=== PATIENT | female | born 1955 | race Caucasian/White ===

== ENCOUNTER 2016-08-30 15:19 | Observation (INO) | payer OTHER ==
[~2016-08-30] VITALS: Ht 175.3 cm; Wt 106.1 kg
--- NOTE | 2016-08-30 17:01 | DIAGNOSTIC IMAGING REPORT ---
PROCEDURE: XR CHEST 1 VIEW INDICATION: CHEST PAIN TECHNIQUE: Portable AP view 03:52 p.m. COMPARISON: None. FINDINGS: Lungs are clear. Heart and mediastinum are normal. Thorax is normal. IMPRESSION: 1. Negative chest.
--- NOTE | 2016-08-30 17:54 | ED ORDER SUMMARY ---
..... Patient: LUIS CARLOS ANDUJAR OrderSheet [facility] VisitID: [id number] [address] [place], [place] [id number] 61y, F Registration Date/Time: 08/30/2016 ORDER SHEET Weight: 106.5 kg (stated) Allergies: morphine GENERAL ORDERS: Chest 1V Urgent (15:08/30/2016 Leann ELIZABETH) (Ack 15:47 Rose Marie) (16:01 MWinterer R.N.) Aviation Medicine Specialist (Continuous) (15:08/30/2016 Leann ELIZABETH) (15:38 KWilliams R.N.) CBC w Diff Urgent (15:08/30/2016 Leann ELIZABETH) (15:38 KWilliams R.N.) CMP Urgent (15:08/30/2016 Leann ELIZABETH) (15:38 KWilliams R.N.) UA-Culture if indicated Urgent (15:08/30/2016 Leann ELIZABETH) (Ack 15:46 Rose Marie) (16:26 MWinterer R.N.) PT with INR Urgent (15:08/30/2016 Leann ELIZABETH) (15:38 KWilliams R.N.) PTT Urgent (15:08/30/2016 Leann ELIZABETH) (15:38 KWilliams R.N.) Amylase Urgent (15:08/30/2016 Leann ELIZABETH) (15:38 KWilliams R.N.) Lipase Urgent (15:08/30/2016 Leann ELIZABETH) (15:38 KWilliams R.N.) D-Dimer Urgent (15:08/30/2016 Leann ELIZABETH) (15:38 KWilliams R.N.) CPK Urgent (15:08/30/2016 Leann ELIZABETH) (15:38 KWilliams R.N.) Troponin-I Urgent (15:08/30/2016 Leann ELIZABETH) (15:38 KWilliams R.N.) BNP Urgent (15:08/30/2016 Leann ELIZABETH) (15:38 KWilliams R.N.) Oxygen (2 L/min) (NC) (15:08/30/2016 Leann ELIZABETH) (15:38 Dimple R.N.) Pulse oximeter (15:08/30/2016 Leann ELIZABETH) (15:38 Dimple R.N.) EKG - ER Stat (15:08/30/2016 Leann ELIZABETH) (15:38 Dimple R.N.) MEDICATION ORDERS: Aspirin PO 325 mg (NOW) (15:08/30/2016 Leann ELIZABETH) (15:39 Dimple R.N.) IV FLUIDS: IV Saline Lock (15:08/30/2016 Leann ELIZABETH) (15:39 Dimple R.N.) ORDER SHEET NOTES: [Electronically signed by Michael Blair MD (21:08/30/2016)] [Electronically signed by Kaitlynn Robertson R.N. (10:37 09/20/2016)] [Electronically locked/signed by Kaitlynn Robertson R.N. (10:37 09/20/2016)]
--- NOTE | 2016-08-30 17:54 | ED NURSING NOTES ---
Clinical Report - Nurses [facility] [address] [place] [address] 08/30/2016 15:20 Patient: LUIS CARLOS ANDUJAR TRIAGE Triage time 15:18. Acuity: LEVEL 2. Chief Complaint: CHEST PAIN. 15:08/30/16. Alert. No acute distress. --15:26 Ricardo Gamble R.N. 15:08/30/16. BP: 152/95. HR: 85. RR: 18. O2 saturation: 99%. Pain level now 10. --15:26 Ricardo Gamble R.N. Weight: 106.5 kg stated. Height/Length: 69 inches Per Patient. BMI: 34.7. --15:22 Ricardo Gamble R.N. Medications Prestique. --15:24 Ricardo Gamble R.N. Zoloft Oral. --15:24 Ricardo Gamble R.N. AmLODIPine Besylate Oral. --15:24 Ricardo Gamble R.N. Atorvastatin Calcium Oral. --15:24 Ricardo Gamble R.N. Allergies morphine. Mild (nausea) --15:25 Ricardo Gamble R.N. Medication/allergy information source: the patient. --15:26 Ricardo Gamble R.N. History Primary physician ([facility]). 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 States pain comes and goes.). This started just prior to arrival. Treatment MEDICAL LABORATORY SCIENTIST: (1 baby asa). SOCIAL HX: Former smoker, end date 1996. Occasional alcohol use. No drug use. FALL RISK ASSESSMENT: Fall risk assessment completed. No fall risk identified. NUTRITIONAL RISK ASSESSMENT: The nutritional risk assessment revealed no deficiencies. FUNCTIONAL ASSESSMENT: Functional assessment: no impairments noted. LEARNING NEEDS ASSESSMENT: The learning needs assessment revealed no barriers. SKIN INTEGRITY ASSESSMENT: Skin integrity risk assessment completed. No skin integrity risk identified. --15:26 Ricardo Gamble R.N. PROBLEMS: Depression. Hypercholesterolemia. Hypertension. --15:28 Ricardo Gamble R.N. ADDITIONAL SURGERIES: Breast Augmentation. Cataract Surgery. Cholecystectomy. Knee Surgery. --15:28 Ricardo Gamble R.N. Interventions ID band on patient. To treatment room. --15:26 Ricardo Gamble R.N. PHYSICAL ASSESSMENT 15:08/30/16. Ambulatory to room. GENERAL / NEURO / PSYCH: Alert. Oriented X 4. Appears in no acute distress. HEENT: Mucous membranes are pink. RESPIRATORY: Respirations not labored. CVS: Pulses within normal limits. Capillary refill less than 2 seconds. GI / : Abdomen soft and nontender. EXTREMITIES: No lower extremity edema. SKIN: Skin is warm and dry. Normal skin turgor. --15:26 Ricardo Gamble R.N. NURSING PROGRESS NOTES 15:08/30/16. The plan of care for this patient has been created. Patient gowned. Head of bed elevated. Call light placed in reach. Bed placed in lowest position. Brakes of bed on. Patient ready for evaluation- chart flagged. --15:26 Ricardo Gamble R.N. Oxygen increased to 2 liters by nasal cannula. --15:28 Ricardo Gamble R.N. 15:29 08/30/2016 Site #1 started via IV in the right antecubital space with an 20g angiocath, with aseptic technique and good blood return; one attempt. Blood drawn: rainbow set. Labeled in the presence of the patient and sent to the lab. Saline lock flushed with 10 mL saline. --15:39 Ricardo Gamble R.N. 15:30 08/30/2016 Aspirin PO Tablets 325 mg given. Allergies verified and confirmed 5 rights. --15:39 Ricardo Gamble R.N. EKG time: (1526). EKG was ordered, performed by a tech and shown to the ED physician. --15:45 Arleen Das ER Tech1 16:25 08/30/16. Checked patient name and birthdate: patient confirmed. Instructions provided to collect clean catch urine and patient verbalized understanding. Clean catch urine collected with return of yellow-colored clear urine; sample sent to lab for urinalysis. Specimen labeled in the presence of the patient. ( Pt ambulated to BR.). --16:25 Hyun Flores R.N. 16:30 08/30/16. BP: 157/76. HR: 71. RR: 16. O2 saturation: 98% on room air. --16:31 Hyun Flores R.N. 18:10 08/30/16. BP: 149/79. HR: 66. RR: 18. O2 saturation: 100% on nasal cannula at 2 liters/minute. Pain level now: 0/10. --18:12 Hyun Flores R.N. 18:12 08/30/16. The patient reports no complaints and she is calm and resting quietly. RESPIRATORY: No respiratory distress. CVS: Denies chest pain. Normal sinus rhythm noted. SKIN: Skin is warm and dry. Skin color within normal limits. --18:12 Hyun Flores R.N. 19:09 08/30/16. Care transferred and report given (MARCIE Carey). --19:09 Hyun Flores R.N. 19:17 08/30/16. BP: 124/66. HR: 85. RR: 20. O2 saturation: 100% on room air. Pain level now: 0/10. --19:18 Hyun Flores R.N. Locked/Released at 09/20/2016 10:37 by Kaitlynn Robertson R.N.
--- NOTE | 2016-08-30 17:54 | ED NURSING NOTES ---
Clinical Report - Nurses [facility] [address] [place] [address] 08/30/2016 15:20 Patient: LUIS CARLOS ANDUJAR TRIAGE Triage time 15:18. Acuity: LEVEL 2. Chief Complaint: CHEST PAIN. 15:08/30/16. Alert. No acute distress. --15:26 Ricardo Gamble R.N. 15:08/30/16. BP: 152/95. HR: 85. RR: 18. O2 saturation: 99%. Pain level now 10. --15:26 Ricardo Gamble R.N. Weight: 106.5 kg stated. Height/Length: 69 inches Per Patient. BMI: 34.7. --15:22 Ricardo Gamble R.N. Medications Prestique. --15:24 Ricardo Gamble R.N. Zoloft Oral. --15:24 Ricardo Gamble R.N. AmLODIPine Besylate Oral. --15:24 Ricardo Gamble R.N. Atorvastatin Calcium Oral. --15:24 Ricardo Gamble R.N. Allergies morphine. Mild (nausea) --15:25 Ricardo Gamble R.N. Medication/allergy information source: the patient. --15:26 Ricardo Gamble R.N. History Primary physician ([facility]). 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 States pain comes and goes.). This started just prior to arrival. Treatment TOOL SALVAGE WORKER: (1 baby asa). SOCIAL HX: Former smoker, end date 1996. Occasional alcohol use. No drug use. FALL RISK ASSESSMENT: Fall risk assessment completed. No fall risk identified. NUTRITIONAL RISK ASSESSMENT: The nutritional risk assessment revealed no deficiencies. FUNCTIONAL ASSESSMENT: Functional assessment: no impairments noted. LEARNING NEEDS ASSESSMENT: The learning needs assessment revealed no barriers. SKIN INTEGRITY ASSESSMENT: Skin integrity risk assessment completed. No skin integrity risk identified. --15:26 Ricardo Gamble R.N. PROBLEMS: Depression. Hypercholesterolemia. Hypertension. --15:28 Ricardo Gamble R.N. ADDITIONAL SURGERIES: Breast Augmentation. Cataract Surgery. Cholecystectomy. Knee Surgery. --15:28 Ricardo Gamble R.N. Interventions ID band on patient. To treatment room. --15:26 Ricardo Gamble R.N. PHYSICAL ASSESSMENT 15:08/30/16. Ambulatory to room. GENERAL / NEURO / PSYCH: Alert. Oriented X 4. Appears in no acute distress. HEENT: Mucous membranes are pink. RESPIRATORY: Respirations not labored. CVS: Pulses within normal limits. Capillary refill less than 2 seconds. GI / : Abdomen soft and nontender. EXTREMITIES: No lower extremity edema. SKIN: Skin is warm and dry. Normal skin turgor. --15:26 Ricardo Gamble R.N. NURSING PROGRESS NOTES 15:08/30/16. The plan of care for this patient has been created. Patient gowned. Head of bed elevated. Call light placed in reach. Bed placed in lowest position. Brakes of bed on. Patient ready for evaluation- chart flagged. --15:26 Ricardo Gamble R.N. Oxygen increased to 2 liters by nasal cannula. --15:28 Ricardo Gamble R.N. 15:29 08/30/2016 Site #1 started via IV in the right antecubital space with an 20g angiocath, with aseptic technique and good blood return; one attempt. Blood drawn: rainbow set. Labeled in the presence of the patient and sent to the lab. Saline lock flushed with 10 mL saline. --15:39 Ricardo Gamble R.N. 15:30 08/30/2016 Aspirin PO Tablets 325 mg given. Allergies verified and confirmed 5 rights. --15:39 Ricardo Gamble R.N. EKG time: (1526). EKG was ordered, performed by a tech and shown to the ED physician. --15:45 Arleen Das ER Tech1 16:25 08/30/16. Checked patient name and birthdate: patient confirmed. Instructions provided to collect clean catch urine and patient verbalized understanding. Clean catch urine collected with return of yellow-colored clear urine; sample sent to lab for urinalysis. Specimen labeled in the presence of the patient. ( Pt ambulated to BR.). --16:25 Hyun Flores R.N. 16:30 08/30/16. BP: 157/76. HR: 71. RR: 16. O2 saturation: 98% on room air. --16:31 Hyun Flores R.N. 18:10 08/30/16. BP: 149/79. HR: 66. RR: 18. O2 saturation: 100% on nasal cannula at 2 liters/minute. Pain level now: 0/10. --18:12 Hyun Flores R.N. 18:12 08/30/16. The patient reports no complaints and she is calm and resting quietly. RESPIRATORY: No respiratory distress. CVS: Denies chest pain. Normal sinus rhythm noted. SKIN: Skin is warm and dry. Skin color within normal limits. --18:12 Hyun Flores R.N. 19:09 08/30/16. Care transferred and report given (MARCIE Carey). --19:09 Hyun Flores R.N. 19:17 08/30/16. BP: 124/66. HR: 85. RR: 20. O2 saturation: 100% on room air. Pain level now: 0/10. --19:18 Hyun Flores R.N. Locked/Released at 09/20/2016 10:37 by Kaitlynn Robertson R.N.
--- NOTE | 2016-08-30 17:54 | ED CLINICAL REPORT ---
Clinical Report - Physicians/Mid Levels [facility] [address] [place] [address] 08/30/2016 15:20 Patient: LUIS CARLOS ANDUJAR Time Seen: 15:27. Arrived- By private vehicle. Historian- patient. HISTORY OF PRESENT ILLNESS Chief Complaint: CHEST PAIN. At its maximum, severity described as 8 / 10. When seen in the E.D., it was gone. Modifying factors- relieved by rest. It is described as aching and it is described as located in the central chest and left chest area and radiating to the right jaw. This started today and is now gone. It was abrupt in onset and has been constant. Onset during heavy exertion. The patient has had nausea. No vomiting, difficulty breathing or diaphoresis. Similar symptoms previously: None. REVIEW OF SYSTEMS No chills, fever, calf pain, cough or pedal edema. No abdominal pain, black stools, bloody stools, diarrhea or vomiting. She has experienced sweats and had constipation and frequency. She has had mild palpitations (chronically). It has been similar to previous symptoms. she had cardiac cath done 20 years ago at [facility] in [place]. All systems otherwise negative, except as recorded above. PAST HISTORY PCP - Leilow at the [facility]. Problems: Depression. Hypercholesterolemia. Hypertension. Additional Surgeries: Breast Augmentation. Cataract Surgery. Cholecystectomy. Knee Surgery. Medications: Atorvastatin Calcium Oral. AmLODIPine Besylate Oral. Zoloft Oral. Prestique. Allergies: morphine. Mild (nausea). SOCIAL HISTORY Former smoker, end date 1996. Occasional alcohol use. No drug use. Is a local resident. FAMILY HISTORY Heart disease in first-degree relative (father and sibling). mother due to kidney failure. ADDITIONAL NOTES The nursing notes have been reviewed. PHYSICAL EXAM Vital Signs: 08/30/2016 15:26 BP: 152/95. HR: 85. RR: 18. O2 saturation: 99%. Have been reviewed. Appearance: Alert. No acute distress. Eyes: Pupils equal, round and reactive to light. ENT: Pharynx normal. Neck: Normal inspection. Neck supple. CVS: Normal heart rate and rhythm. Heart sounds normal. Respiratory: No respiratory distress. Breath sounds normal. Abdomen: Soft and nontender. Bowel sounds normal. No organomegaly. No mass. Obese. Back: Normal external inspection. No CVA tenderness. Skin: Skin warm and dry. Normal skin color. Normal skin turgor. Extremities: Extremities exhibit normal ROM. No calf tenderness. No lower extremity edema. LABS, X-RAYS, AND EKG EKG: No acute process. Normal EKG. Rate: 83. Prior EKG unavailable. The study has been independently viewed by me. Chest X-ray: No acute disease. The X-rays were independently viewed by me. Laboratory Tests: UA-Culture if indicated: (FRANCA: 08/30/2016 16:00) ( MsgRcvd 08/30/2016 16:56) Final results Test Result Flag Units (Reference) URINE COLOR YELLOW URINE APPEARANCE CLEAR URINE GLUCOSE NEGATIVE (NEGATIVE) URINE BILIRUBIN NEGATIVE (NEGATIVE) URINE KETONE NEGATIVE (NEGATIVE) URINE SPECIFIC GRAVITY 1.010 (1.010-1.030) URINE PH 6.0 (5.0-8.0) URINE PROTEIN NEGATIVE (NEGATIVE) URINE UROBILINOGEN 0.2 EU/dL (0.2-1.0) URINE NITRITE NEGATIVE (NEGATIVE) URINE BLOOD TRACE-LYSED (NEGATIVE) URINE LEUK ESTERASE POSITIVE (NEGATIVE) URINE RBC 1-3 rbc/hpf (0-1) URINE WBC 3-5 wbc/hpf (0-1) URINE EPITHELIAL CELLS 3-5 EPI/hpf (0-5) URINE BACTERIA FEW (1+) (NONE SEEN) URINE COMMENT CULTURE INDICATED URINE CULTURES ARE SET-UP BASED ON THE FOLLOWING CRITERIA:POSITIVE NITRITEPOSITIVE LEUKOCYTE ESTERASEGREATER THAN 10 WHITE BLOOD CELLSMODERATE (2+) OR GREATER BACTERIA CBC w Diff: (FRANCA: 08/30/2016 15:34) ( MsgRcvd 08/30/2016 16:11) Final results Test Result Flag Units (Reference) WHITE BLOOD COUNT 8.8 K/uL (4.5-11.5) RED BLOOD COUNT 4.54 M/uL (4.00-5.20) HEMOGLOBIN 12.9 gm/dL (12.0-16.0) HEMATOCRIT 39.5 % (36.0-46.0) MEAN CELL VOLUME 87 fL (80-100) MEAN CORPUSCULAR HGB 29 pg (26-34) MEAN CORPUSCULAR HGB CONC 33 g/dL (31-37) RED CELL DISTRIBUTION WIDTH 13.4 % (11.6-14.8) PLATELET COUNT 232 K/uL (150-400) NEUTROPHIL % 53.1 % (50-75) LYMPH % 36.6 % (25-40) MONO % 8.0 % (3-14) EOSINOPHIL % 1.8 % (0-4) BASOPHIL % 0.5 % (0-2) PT with INR: (FRANCA: 08/30/2016 15:34) ( MsgRcvd 08/30/2016 16:21) Final results Test Result Flag Units (Reference) INR 1.0 (0.8-1.2) Low Intensity Therapy: INR 1.5-2.0 PT range 18.5-23.1Mod.Intensity Therapy: INR 2.0-3.0 PT range 23.1-31.5High Intensity Therapy: INR 2.5-3.5 PT range 27.4-35.5High Intensity Therapy 2: INR 3.0-4.0 PT range 31.5-39.3 APTT 35 H SECONDS (24-34) D-DIMER QUANTITATIVE < 0.27 L ug/mLFEU (0.27-0.52) The primary value of this quantitative assay relates toits negative predictive value (i.e. exclusion) of pulmonaryembolism/deep vein thrombosis/DIC.Elevated levels of d-dimer may also occur with:, age, cancer, inflammation, liver disease,post-op, infection, hematoma, coronary disease, peripheralarteriopathy, bleeding disorders and thrombolytic treatment.Results should be correlated with other clinical andradiological data.Testing Methodology: Latex Immunoassay BNP: (FRANCA: 08/30/2016 15:34) ( MsgRcvd 08/30/2016 16:37) Final results Test Result Flag Units (Reference) B-TYPE NATRIURETIC PEPTIDE 30.0 pg/ml (5-100) CMP: (FRANCA: 08/30/2016 15:34) ( MsgRcvd 08/30/2016 16:22) Final results Test Result Flag Units (Reference) GLUCOSE 92 mg/dL (70-110) BUN 12 mg/dL (7-18) CREATININE 0.7 mg/dL (0.6-1.3) Estimated GFR >60 mL/min Estimated GFR- >60 mL/min Note: Persistent reduction over 3 months in eGFR<60 mL/min/1.73 m2 defines CKD. Patients with eGFR values>=60 mL/min/1.73 m2 may also have CKD if evidence ofpersistent proteinuria. Additional information may be foundat www.kidney.org. SODIUM 138 mmol/L (136-145) POTASSIUM 4.0 mmol/L (3.5-5.1) CHLORIDE 102 mmol/L (98-107) CARBON DIOXIDE 27 mmol/L (21-32) CALCIUM 8.8 mg/dL (8.5-10.1) TOTAL PROTEIN 7.5 g/dL (6.4-8.2) ALBUMIN 3.8 g/dL (3.3-5.0) BILIRUBIN, TOTAL 0.7 mg/dL (0.0-1.0) ALKALINE PHOSPHATASE 76 U/L (46-116) AST (SGOT) 34 U/L (15-37) ALT (SGPT) 54 U/L (12-78) LIPASE 203 U/L (73-393) AMYLASE 82 U/L (25-115) CPK 77 U/L (24-260) TROPONIN I <0.05 ng/mL (0.00-1.5) TROPONIN REFERENCE RANGE:<0.1 NEGATIVE0.1-1.5 INDETERMINANT>1.5 POSITIVE . PROGRESS AND PROCEDURES Course of Care: Patient is stable. Discussed case with hospitalist, (Alessandra). Reviewed test results and need for additional work-up. Agreed upon treatment plan, need for patient follow-up and decision to place in observation. Health care provider will see patient in hospital. Patient/family counseled. Old medical records ordered. Old records unavailable. Disposition: Discharged. Condition: stable. CLINICAL IMPRESSION Chest pain. (Electronically signed by Michael Blair MD 08/30/2016 21:24)
--- NOTE | 2016-08-30 17:54 | ED ORDER SUMMARY ---
..... Patient: LUIS CARLOS ANDUJAR OrderSheet [facility] VisitID: [id number] [address] [place], [place] [id number] 61y, F Registration Date/Time: 08/30/2016 ORDER SHEET Weight: 106.5 kg (stated) Allergies: morphine GENERAL ORDERS: Chest 1V Urgent (15:08/30/2016 Leann ELIZABETH) (Ack 15:47 Rose Marie) (16:01 MWinterer R.N.) Craft Center Director (Continuous) (15:08/30/2016 Leann ELIZABETH) (15:38 KWilliams R.N.) CBC w Diff Urgent (15:08/30/2016 Leann ELIZABETH) (15:38 KWilliams R.N.) CMP Urgent (15:08/30/2016 Leann ELIZABETH) (15:38 KWilliams R.N.) UA-Culture if indicated Urgent (15:08/30/2016 Leann ELIZABETH) (Ack 15:46 Rose Marie) (16:26 MWinterer R.N.) PT with INR Urgent (15:08/30/2016 Leann ELIZABETH) (15:38 KWilliams R.N.) PTT Urgent (15:08/30/2016 Leann ELIZABETH) (15:38 KWilliams R.N.) Amylase Urgent (15:08/30/2016 Leann ELIZABETH) (15:38 KWilliams R.N.) Lipase Urgent (15:08/30/2016 Leann ELIZABETH) (15:38 KWilliams R.N.) D-Dimer Urgent (15:08/30/2016 Leann ELIZABETH) (15:38 KWilliams R.N.) CPK Urgent (15:08/30/2016 Leann ELIZABETH) (15:38 KWilliams R.N.) Troponin-I Urgent (15:08/30/2016 Leann ELIZABETH) (15:38 KWilliams R.N.) BNP Urgent (15:08/30/2016 Leann ELIZABETH) (15:38 KWilliams R.N.) Oxygen (2 L/min) (NC) (15:08/30/2016 Leann ELIZABETH) (15:38 Dimple R.N.) Pulse oximeter (15:08/30/2016 Leann ELIZABETH) (15:38 Dimple R.N.) EKG - ER Stat (15:08/30/2016 Leann ELIZABETH) (15:38 Dimple R.N.) MEDICATION ORDERS: Aspirin PO 325 mg (NOW) (15:08/30/2016 Leann ELIZABETH) (15:39 Dimple R.N.) IV FLUIDS: IV Saline Lock (15:08/30/2016 Leann ELIZABETH) (15:39 Dimple R.N.) ORDER SHEET NOTES: [Electronically signed by Michael Blair MD (21:08/30/2016)] [Electronically signed by Kaitlynn Robertson R.N. (10:37 09/20/2016)] [Electronically locked/signed by Kaitlynn Robertson R.N. (10:37 09/20/2016)]
[2016-08-30 20:51] VITALS: BP 121/76
[2016-08-30 22:32] VITALS: BP 127/71
[2016-08-30] MEDS ORDERED: AMLODIPINE BES2.5 MG PO (23:41)
[2016-08-30] MEDS ORDERED: ATORVASTATIN CA40 MG PO (23:42)
[2016-08-30] MEDS ORDERED: ZOLOFT25 MG PO (23:43)
[2016-08-30] MEDS ORDERED: PRISTIQ25 MG (23:44)
[2016-08-31 00:59] VITALS: BP 137/90
--- NOTE | 2016-08-31 01:48 | History & Physical Report ---
Medications and Allergies Medications Current Medications Sig/Marga Start time Last Medication Dose Route Stop Time Status Admin Atorvastatin Calcium 20 MG QPM 08/31 1800 AC PO Amlodipine Besylate 5 MG DAILY 08/31 0900 AC PO Aspirin 81 MG DAILY 08/31 09 AC PO Sertraline HCl 25 MG DAILY 08/31 0900 AC PO Pantoprazole Sodium 40 MG DAILY@0600 08/31 0600 AC IV Heparin Sodium See Dose .ADJUSTMENT DOSE PRN 08/31 0030 AC (Porcine) Insts (1) IV Heparin Sodium/ 500 ML TITRATE 08/31 0030 AC 08/31 Sodium Chloride IV 0043 Sodium Chloride 1,000 ML ASDIRECTED 08/30 2345 AC IV Docusate Sodium 250 MG BID PRN 08/30 2300 AC PO Nitroglycerin 0.4 MG Q5M PRN 08/30 2215 AC SL Acetaminophen 650 MG Q6H PRN 08/30 2200 AC PO Morphine Sulfate 1 MG Q30MIN PRN 08/30 2200 AC 08/31 IV 0057 Ondansetron HCl 4 MG Q6H PRN 08/30 2200 AC 08/31 IV 0057 Zolpidem Tartrate 5 MG QHS PRN 08/30 2200 AC PO Sodium Chloride 1,000 ML ASDIRECTED 08/30 1930 AC IV Dose Instructions: (1)Heparin Sodium (Porcine): DOSE PER ADMIN CRITERIA (2000 - 4000 UNITS) Allergies Coded Allergies: Morphine (Mild, MILD NAUSEA 08/30/16) Physical Exam Vital Signs / I&Os Vital Signs Date Time Temp Pulse Resp B/P Pulse O2 O2 Flow FiO2 Ox Delivery Rate 08/31 0118 Nasal 3.0 Cannula 08/31 58 97.5 70 18 137/90 100 Nasal 3.0 Cannula 08/30 2231 98.1 62 18 127/71 98 Room Air 08/30 2050 97.7 65 16 121/76 99 I&O 08/30 0800 08/30 1600 08/31 0000 Intake Total Output Total Balance LAB Results Laboratory Tests 08/30 08/30 08/30 1534 1534 1600 Chemistry Plasma Sodium (136 - 145 mmol/L) 138 Plasma Potassium (3.5 - 5.1 mmol/L) 4.0 Plasma Chloride (98 - 107 mmol/L) 102 CO2 (Enzymatic) (21 - 32 mmol/L) 27 BUN (7 - 18 mg/dL) 12 Creatinine (0.6 - 1.3 mg/dL) 0.7 Est GFR ( Amer) (mL/min) >60 Est GFR (Non-Af Amer) (mL/min) >60 Glucose (70 - 110 mg/dL) 92 Plasma Calcium (8.5 - 10.1 mg/dL) 8.8 Total Bilirubin (0.0 - 1.0 mg/dL) 0.7 AST (15 - 37 U/L) 34 ALT (12 - 78 U/L) 54 Alkaline Phosphatase (46 - 116 U/L) 76 Creatine Kinase (24 - 260 U/L) 77 Troponin (0.00 - 1.5 ng/mL) <0.05 B-Natriuretic Peptide (5 - 100 pg/ml) 30.0 Total Protein (6.4 - 8.2 g/dL) 7.5 Albumin (3.3 - 5.0 g/dL) 3.8 Amylase (25 - 115 U/L) 82 Lipase (73 - 393 U/L) 203 Coagulation INR (0.8 - 1.2) 1.0 APTT (24 - 34 SECONDS) 35 D-Dimer, Quantitative (0.27 - 0.52 ug/mLFEU) < 0.27 Hematology WBC (4.5 - 11.5 K/uL) 8.8 RBC (4.00 - 5.20 M/uL) 4.54 Hgb (12.0 - 16.0 gm/dL) 12.9 Hct (36.0 - 46.0 %) 39.5 MCV (80 - 100 fL) 87 MCH (26 - 34 pg) 29 RDW (11.6 - 14.8 %) 13.4 Neut % (Auto) (50 - 75 %) 53.1 Lymph % (Auto) (25 - 40 %) 36.6 Clark % (Auto) (3 - 14 %) 8.0 Eos % (Auto) (0 - 4 %) 1.8 Baso % (Auto) (0 - 2 %) 0.5 Plt Count, EDTA (150 - 400 K/uL) 232 PUBS MCHC (31 - 37 g/dL) 33 Urines Urine Color YELLOW Urine Appearance CLEAR Urine pH (5.0 - 8.0) 6.0 Ur Specific [place] (1.010 - 1.030) 1.010 Urine Protein (NEGATIVE) NEGATIVE Urine Ketones (NEGATIVE) NEGATIVE Urine Blood (NEGATIVE) TRACE-LYSED Urine Nitrite (NEGATIVE) NEGATIVE Urine Bilirubin (NEGATIVE) NEGATIVE Urine Urobilinogen (0.2 - 1.0 EU/dL) 0.2 Ur Leukocyte Esterase (NEGATIVE) POSITIVE Urine RBC (0 - 1 rbc/hpf) 1-3 Urine WBC (0 - 1 wbc/hpf) 3-5 Ur Epithelial Cells (0 - 5 EPI/hpf) 3-5 Urine Bacteria (NONE SEEN) FEW (1+) Urine Glucose (NEGATIVE) NEGATIVE Urine Comment CULTURE INDICATED 08/30 2210 Chemistry Creatine Kinase (24 - 260 U/L) 168 Troponin (0.00 - 1.5 ng/mL) 3.99 Microbiology Date/Time Procedure - Status Source Growth 08/30 1600 Urine Culture - RECD URINE CC
--- NOTE | 2016-08-31 03:48 | HISTORY AND PHYSICAL ---
ADMITTED: 08/30/2016 CHIEF COMPLAINT: Chest pain Information source: The patient herself. Reliability good. HISTORY OF PRESENT ILLNESS: 61-year-old female with past medical history of hypertension, high cholesterol, h/o smoking inthe past who presented to [facility] Emergency Department with a complaint of left-sided chest pain. On initial evaluation in the emergency department, her troponin levels were negative. She was admitted to the hospital for further evaluation and management. As per patient, she was fine until today afternoon, when she started feeling left- sided chest pain when she was unloading hay. The pain was located on the left side. It was pressure-like, which was radiating to her jaw on the right side. She had took baby aspirin with no immediate relief, her chest pain subsided though after 30-40 minute. She told this to her son and her son brought her to [facility] Emergency Department. While entering into the emergency department, she again felt the same chest pain, which was relieved with resting in bed. On floor, her EKGs were reviewed and which showed ST elevation in anteroseptal leads including V1 and V2. Troponins were repeated which were positive with value of 3.99. Dr. Moya, medical library assistant from [facility], was contacted, who recommended to start ACS treatment protocol She was given clopidogrel 300mg orally. She had received aspirin 325 mg in ER. Statin and heparin 5000 units bolus is given and heparin drip started. Around 1 a.m., she again complained of chest pain which was similar to her previous pain. She was given morphine and is being transferred to [facility] for furthur management. MEDICAL/SURGICAL HISTORY: Recently diagnosed hypertension, hyperlipidemia. Surgery for retinal detachment. MEDICATIONS: Home meds as below, doses needs to be confirmed 1. Amlodipine 2. Atorvastatin 3. Sertraline 4. Famotidine ALLERGIES: 1. MORPHINE, MILD NAUSEA. SOCIAL HISTORY: The patient lives in the community with her family. 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 H/o chronic smoking, quit 20 years back. She used to smoke 1/2 to 1 pack of cigarettes and smoked for 25 years. She drinks alcohol occasionally. She denies any history of drug abuse. FAMILY HISTORY: Grandmother of heart blockage at the age of 50 years. Mother had kidney failure from diabetes and hypertension. She also had hyperlipidemia. Father had of heart failure. REVIEW OF SYSTEMS: She denies any fever, chills, sweats, weakness, malaise. She denies any pain, vision change, conjunctival inflammation, eyelid inflammation and redness. She denies any nasal congestion, throat pain, throat swelling. She denied any cough, shortness of breath, wheezing. She does complain of chest pain, which is left- sided. She denies any palpitation, orthopnea, PND, edema, or lightheadedness. She denies nausea, vomiting, abdominal pain, diarrhea, constipation. She denies any dysuria, frequency, incontinence, hematuria. She denies any neck pain, shoulder pain, arm pain, back pain, hand pain, leg pain, foot pain. She denies any rashes, lesions, jaundice, bruising. She denies any weakness, numbness, and coordination change in her speech, confusion, seizures. PHYSICAL EXAMINATION: VITAL SIGNS: Temperature 97.7, pulse rate 65 per minute, respiratory rate 16 per minute, blood pressure 121/71, oxygen saturation 99. GENERAL APPEARANCE: She is alert, awake, oriented x3, in no acute distress. HEENT: Normal. LUNGS: Clear to auscultation, normal air movement. NECK: No JVD. Supple. CARDIOVASCULAR: Normal. There is no chest wall tenderness. Regular rate and rhythm, normal S1 and S2. No murmurs, gallops, rubs. ABDOMEN: Soft, normal bowel sounds. No tenderness, no guarding. EXTREMITIES: No edema. SKIN: No rashes. No breakdown. No significant lesions. NEUROLOGIC: No lateralizing signs. LAB/IMAGING: Sodium 138, potassium 4, chloride 102, bicarbonate 27, BUN 12, creatinine 0.7. GFR more than 60, glucose 92, calcium 8.8. Liver functions within normal limits. Creatinine kinase 77. Troponin first set less than 0.05. Troponin, second set 3.99. BNP 30. Amylase 82, lipase 203. Liver functions normal. INR 1. PTT 35. D-dimer less than 0.27. WBC 8.8, hemoglobin 12.9, hematocrit 39.5, platelets 232. Urinalysis: Color yellow, appearance clear, pH 6, specific gravity 1.010, urine protein negative, ketones negative, urine blood trace lysed. Urine nitrites negative. Urine leukocyte esterase positive. Urine RBC 1-3, urine WBC 3-5, urine nucleated cells 3-5, urine bacteria few. Urine culture pending. Chest x-ray negative. IMPRESSION/PLAN: 1. Chest pain, possible ST elevation myocardial infarction. Received aspirin 325 mg bolus, clopidogrel 300 mg, started on heparin drip. Morphine p.r.n. for chest pain. Nitroglycerin sublingual for chest pain. Metoprolol if blood pressure permits, statin, monitor troponins q.8 hourly. EKG. The patient is being transferred to [facility] for further evaluation and management and possible angiography. 2. Hypertension, metoprolol for now, adjust as needed. 3. Hyperlipidemia: jeffery, check lipid profile and HbA1c E/M coding admission, inpatient high, 41494.
--- NOTE | 2016-08-31 03:48 | HISTORY AND PHYSICAL ---
ADMITTED: 08/30/2016 CHIEF COMPLAINT: Chest pain Information source: The patient herself. Reliability good. HISTORY OF PRESENT ILLNESS: 61-year-old female with past medical history of hypertension, high cholesterol, h/o smoking inthe past who presented to [facility] Emergency Department with a complaint of left-sided chest pain. On initial evaluation in the emergency department, her troponin levels were negative. She was admitted to the hospital for further evaluation and management. As per patient, she was fine until today afternoon, when she started feeling left- sided chest pain when she was unloading hay. The pain was located on the left side. It was pressure-like, which was radiating to her jaw on the right side. She had took baby aspirin with no immediate relief, her chest pain subsided though after 30-40 minute. She told this to her son and her son brought her to [facility] Emergency Department. While entering into the emergency department, she again felt the same chest pain, which was relieved with resting in bed. On floor, her EKGs were reviewed and which showed ST elevation in anteroseptal leads including V1 and V2. Troponins were repeated which were positive with value of 3.99. Dr. Moya, converter skimmer from [facility], was contacted, who recommended to start ACS treatment protocol She was given clopidogrel 300mg orally. She had received aspirin 325 mg in ER. Statin and heparin 5000 units bolus is given and heparin drip started. Around 1 a.m., she again complained of chest pain which was similar to her previous pain. She was given morphine and is being transferred to [facility] for furthur management. MEDICAL/SURGICAL HISTORY: Recently diagnosed hypertension, hyperlipidemia. Surgery for retinal detachment. MEDICATIONS: Home meds as below, doses needs to be confirmed 1. Amlodipine 2. Atorvastatin 3. Sertraline 4. Famotidine ALLERGIES: 1. MORPHINE, MILD NAUSEA. SOCIAL HISTORY: The patient lives in the community with her family. 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 H/o chronic smoking, quit 20 years back. She used to smoke 1/2 to 1 pack of cigarettes and smoked for 25 years. She drinks alcohol occasionally. She denies any history of drug abuse. FAMILY HISTORY: Grandmother of heart blockage at the age of 50 years. Mother had kidney failure from diabetes and hypertension. She also had hyperlipidemia. Father had of heart failure. REVIEW OF SYSTEMS: She denies any fever, chills, sweats, weakness, malaise. She denies any pain, vision change, conjunctival inflammation, eyelid inflammation and redness. She denies any nasal congestion, throat pain, throat swelling. She denied any cough, shortness of breath, wheezing. She does complain of chest pain, which is left- sided. She denies any palpitation, orthopnea, PND, edema, or lightheadedness. She denies nausea, vomiting, abdominal pain, diarrhea, constipation. She denies any dysuria, frequency, incontinence, hematuria. She denies any neck pain, shoulder pain, arm pain, back pain, hand pain, leg pain, foot pain. She denies any rashes, lesions, jaundice, bruising. She denies any weakness, numbness, and coordination change in her speech, confusion, seizures. PHYSICAL EXAMINATION: VITAL SIGNS: Temperature 97.7, pulse rate 65 per minute, respiratory rate 16 per minute, blood pressure 121/71, oxygen saturation 99. GENERAL APPEARANCE: She is alert, awake, oriented x3, in no acute distress. HEENT: Normal. LUNGS: Clear to auscultation, normal air movement. NECK: No JVD. Supple. CARDIOVASCULAR: Normal. There is no chest wall tenderness. Regular rate and rhythm, normal S1 and S2. No murmurs, gallops, rubs. ABDOMEN: Soft, normal bowel sounds. No tenderness, no guarding. EXTREMITIES: No edema. SKIN: No rashes. No breakdown. No significant lesions. NEUROLOGIC: No lateralizing signs. LAB/IMAGING: Sodium 138, potassium 4, chloride 102, bicarbonate 27, BUN 12, creatinine 0.7. GFR more than 60, glucose 92, calcium 8.8. Liver functions within normal limits. Creatinine kinase 77. Troponin first set less than 0.05. Troponin, second set 3.99. BNP 30. Amylase 82, lipase 203. Liver functions normal. INR 1. PTT 35. D-dimer less than 0.27. WBC 8.8, hemoglobin 12.9, hematocrit 39.5, platelets 232. Urinalysis: Color yellow, appearance clear, pH 6, specific gravity 1.010, urine protein negative, ketones negative, urine blood trace lysed. Urine nitrites negative. Urine leukocyte esterase positive. Urine RBC 1-3, urine WBC 3-5, urine nucleated cells 3-5, urine bacteria few. Urine culture pending. Chest x-ray negative. IMPRESSION/PLAN: 1. Chest pain, possible ST elevation myocardial infarction. Received aspirin 325 mg bolus, clopidogrel 300 mg, started on heparin drip. Morphine p.r.n. for chest pain. Nitroglycerin sublingual for chest pain. Metoprolol if blood pressure permits, statin, monitor troponins q.8 hourly. EKG. The patient is being transferred to [facility] for further evaluation and management and possible angiography. 2. Hypertension, metoprolol for now, adjust as needed. 3. Hyperlipidemia: jeffery, check lipid profile and HbA1c E/M coding admission, inpatient high, [id number].
--- NOTE | 2016-09-20 10:37 | ED DISCHARGE INSTRUCTIONS ---
Patient: LUIS CARLOS ANDUJAR General Instructions [facility] VisitID: [id number] [address] [place] [address] 61y, F Registration Date/Time: 08/30/2016 Chest pain. (Electronically signed by Michael Blair MD 08/30/2016 21:24)
--- NOTE | 2016-09-20 10:37 | ED MAR SUMMARY ---
..... Medication Administration Record [facility] [address] [place] [address] Patient: LUIS CARLOS ANDUJAR Visit ID: [id number] 61y, F Weight: 106.5 kg Height/Length: 69 in BMI: 34.7 ALLERGIES: morphine Given 15:30 08/30/2016 Ricardo Gamble R.N. Medication Administered: ASPIRIN [PO], Dose: 325 mg Tablets PO. Medication Ordered: Aspirin PO 325 mg (NOW).
--- NOTE | 2016-09-20 10:37 | ED DISCHARGE INSTRUCTIONS ---
Patient: LUIS CARLOS ANDUJAR General Instructions [facility] VisitID: [id number] [address] [place] [address] 61y, F Registration Date/Time: 08/30/2016 Chest pain. (Electronically signed by Michael Blair MD 08/30/2016 21:24)
--- NOTE | 2016-09-20 10:37 | ED MAR SUMMARY ---
..... Medication Administration Record [facility] [address] [place] [address] Patient: LUIS CARLOS ANDUJAR Visit ID: [id number] 61y, F Weight: 106.5 kg Height/Length: 69 in BMI: 34.7 ALLERGIES: morphine Given 15:30 08/30/2016 Ricardo Gamble R.N. Medication Administered: ASPIRIN [PO], Dose: 325 mg Tablets PO. Medication Ordered: Aspirin PO 325 mg (NOW).
--- NOTE | 2016-09-20 10:37 | ED MED RECONCILIATION SUMMARY ---
Patient: LUIS CARLOS ANDUJAR Medication Reconciliation Report [facility] VisitID: [id number] [address] [place] [address] 61y, F Registration Date/Time: 08/30/2016 Weight: 106.5 kg Height/Length: 69 in. BMI: 34.7 ALLERGIES: morphine The patient's Home Medications are listed below: THE FOLLOWING MEDICATIONS NEED TO BE RECONCILED: AmLODIPine Besylate Oral Atorvastatin Calcium Oral Prestique Zoloft Oral The source(s) of the original Home Medication information: patient The following Medications were given to the patient in the Emergency Department: Aspirin [PO] PO 325 mg, administered: 08/30/2016 3:30:00 PM The following Medications were prescribed to the patient: None.
--- NOTE | 2016-09-20 10:37 | ED MED RECONCILIATION SUMMARY ---
Patient: LUIS CARLOS ANDUJAR Medication Reconciliation Report [facility] VisitID: [id number] [address] [place] [place] [address] 61y, F Registration Date/Time: 08/30/2016 Weight: 106.5 kg Height/Length: 69 in. BMI: 34.7 ALLERGIES: morphine The patient's Home Medications are listed below: THE FOLLOWING MEDICATIONS NEED TO BE RECONCILED: AmLODIPine Besylate Oral Atorvastatin Calcium Oral Prestique Zoloft Oral The source(s) of the original Home Medication information: patient The following Medications were given to the patient in the Emergency Department: Aspirin [PO] PO 325 mg, administered: 08/30/2016 3:30:00 PM The following Medications were prescribed to the patient: None.
== END 2016-08-31 01:43 | disposition short-term general hospital (02) ==
LOC: ED SRH 15:19 → TRANS SRH 18:46 → ACUTE2 SRH 20:44
PROVIDERS: ADMIT Emergency Medicine
DX: R07.9 Chest pain, unspecified (principal); I10 Essential (primary) hypertension; E78.5 Hyperlipidemia, unspecified; Z87.891 Personal history of nicotine dependence
CPT/HCPCS: 29230; 29246; 29247; 29263; 90004; 90074; 90100; 90469; 90616; 90627; 91320; 91556; 92235; 92530; 92610; 94001; 94060; 95059